=== PATIENT | female | born 1970 | race Hispanic/Latino ===

== ENCOUNTER 2025-05-22 18:28 | Emergency (ER) | payer BC, SELFPAY ==
[2025-05-22] MEDS ORDERED: Ketorolac Tromethamine 30 MG (1 mL) VIAL ONE (19:30)
== END 2025-05-22 20:16 | disposition home or self-care (01) ==
LOC: CSHERS 18:28
DX: S43.402A Unspecified sprain of left shoulder joint, initial encounter (principal); M54.12 Radiculopathy, cervical region; X58.XXXA Exposure to other specified factors, initial encounter
CPT/HCPCS: 96372; 99283; J1885